=== PATIENT | female | born 1990 | race Two or more races ===

== ENCOUNTER → 2019-02-17 09:00 | Outpatient (CLI) | payer OTHER | END | disposition home or self-care (01) | LOC: LAB 09:00 | DX: J11.1 Influenza due to unidentified influenza virus with other respiratory manifestations (principal); R05 Cough ==

== ENCOUNTER 2019-07-28 12:23 | Emergency (ER) | payer OTHER ==
[~2019-07-28] VITALS: Ht 160 cm; Wt 59.9 kg
[2019-07-28] MEDS ORDERED: KETO10TA2 PO (16:08)
[2019-07-28] MEDS ORDERED: PEPCID AC20 MG PO (16:08)
== END 2019-07-28 16:14 | disposition home or self-care (01) ==
LOC: ER 12:23
DX: K29.70 Gastritis, unspecified, without bleeding (principal); R10.11 Right upper quadrant pain

== ENCOUNTER 2019-11-27 03:19 | Emergency (ER) | payer OTHER ==
[~2019-11-27] VITALS: Ht 157.5 cm; Wt 61.2 kg
[~2019-11-27 03:19] MED LIST: KETO10TA2 PO; PEPCID AC20 MG PO
[2019-11-27] MEDS ORDERED: LEVSIN/SL0.125 MG SL (05:39)
[2019-11-27] MEDS ORDERED: PEPCID40 MG PO (05:39)
[2019-11-27] MEDS ORDERED: ZOFRAN4 MG PO (05:44)
== END 2019-11-27 06:06 ==
LOC: ER 03:19
DX: R10.11 Right upper quadrant pain (principal)